=== PATIENT | male | born 1970 | race Caucasian/White ===

== ENCOUNTER 2025-03-14 18:58 | Emergency (ER) | payer BC ==
[2025-03-14 20:08] LABS: #Basophils Less than 0.03 10x3/uL (0.0-0.2); #Eosinophils 0.05 10x3/uL (0.0-0.5); #Monocytes 0.86 10x3/uL (0.0-1.1); #Neutrophils 10.60 10x3/uL (1.5-8.4); %Basophils 0.2 % (0.0-2.0); %Eosinophils 0.4 % (0.0-6.0); %Lymphocytes 10.4 % (18.0-47.0); %Monocytes 6.7 % (0.0-10.0); %Neutrophils 82.0 % (40.0-75.0); Hematocrit 43.9 % (38.8-50.0); Hemoglobin 15.1 g/dL (13.5-17.5); Mean Corpuscular Hemoglobin 30.0 pg (27.0-33.0); Mean Corpuscular Volume 87.3 fL (81.2-95.1); Platelet Count 248 10x3/uL (150-450); Red Blood Cell (RBC) Count 5.03 10x6/uL (4.32-5.72); White Blood Cell (WBC) Count 12.91 10x3/uL (3.5-10.5)
[2025-03-14 20:14] LABS: Glucose, Urine (Dipstick) Normal (Negative); Leukocyte Negative (Negative); Protein, Urine (Dipstick) 15 mg/dl (Neg-Trace); Specific Gravity, Urine 1.025 (1.005-1.030)
[2025-03-14 20:17] LABS: ALT (SGPT) 54 U/L (Less than 45); AST (SGOT) 32 U/L (11-34); Albumin 4.0 g/dL (3.1-4.5); Alkaline Phosphatase 70 U/L (40-110); Anion Gap 15 mmol/L (10-20); BUN (Urea Nitrogen) 18 mg/dL (8.4-25.7); Bilirubin, Total 0.5 mg/dL (0.3-1.2); Calc. Creatinine Clearance 0 mL/min (70-130); Calcium 8.8 mg/dL (7.8-10.44); Carbon Dioxide 20 mmol/L (22-29); Chloride 108 mmol/L (98-107); Globulin 2.9 g/dL (2.4-3.5); Glucose 174 mg/dL (70-105); Potassium 3.9 mmol/L (3.5-5.1); Sodium 139 mmol/L (136-145)
[2025-03-14 20:31] LABS: Bacteria/HPF Rare-Few HPF (None Seen); CAUTI Indications for Culture Pelvic or flank pain; RBC/HPF None Seen HPF (0-3); WBC/HPF None Seen HPF (0-3)
[2025-03-14 20:32] LABS: Urine Culture Reflex No No
== END 2025-03-14 21:26 | disposition home or self-care (01) ==
LOC: CSHERS 18:58
DX: L76.34 Postprocedural seroma of skin and subcutaneous tissue following other procedure (principal); Z87.891 Personal history of nicotine dependence; Z79.899 Other long term (current) drug therapy
CPT/HCPCS: 36415; 74176; 80053; 81001; 85025